=== PATIENT | male | born 1985 | race Caucasian/White ===

== ENCOUNTER 2017-02-25 15:47 | Emergency (ER) | payer BC ==
[~2017-02-25] VITALS: Ht 175.3 cm; Wt 90.7 kg
--- NOTE | 2017-02-25 15:50 | NUR ---
PT TAKEN TO CT VIA W/C ACCOMPANIED BY CLASS C TRUCK DRIVER
--- NOTE | 2017-02-25 15:50 | NUR ---
Valerie farmer in [facility] - 02/25/17 at 1614 by [email or web address] PT TAKEN TO CT VIA W/C ACCOMPANIED BY ARTIFICIAL FLOWERS STARCHER
--- NOTE | 2017-02-25 16:06 | NUR ---
Patient ambulated to bed 4 with family. RN evaluating patient at bedside.
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
[2017-02-25 16:13] VITALS: BP 140/79
--- NOTE | 2017-02-25 16:22 | NUR ---
LISA ARENAS AT BEDSIDE.
[2017-02-25 16:51] LABS: HEMOGLOBIN 16.7 g/dL (12.0-18.0); MONOCYTES # (AUTO) 0.6 K/uL (0.8-1.0); RED CELL DISTRIBUTION WIDTH 12.2 % (11.6-13.7); WHITE BLOOD COUNT (AUTO) 7.8 K/uL (4.8-10.8)
--- NOTE | 2017-02-25 16:51 | NUR ---
PT TAKEN TO XRAY VIA W/C ACCOMPANIED BY [employer].
--- NOTE | 2017-02-25 16:51 | NUR ---
Patient taken to XRAY via wheelchair by tech.
[2017-02-25 16:54] LABS: APPEARANCE,URINE CLEAR (CLEAR); BILIRUBIN,URINE NEGATIVE (NEGATIVE); BLOOD, URINE 2+ (NEGATIVE); COLOR,URINE YELLOW (YELLOW); LEUKOCYTE ESTERASE ,URINE NEGATIVE (NEGATIVE); NITRITE, URINE NEGATIVE (NEGATIVE); PH,URINE 6.5 (5.0-9.0); PROTEIN,URINE NEGATIVE (NEGATIVE); UGLUCOSE NEGATIVE (NEGATIVE); UROBILINOGEN,URINE 0.2 EU/dL (0.2 - 1)
[2017-02-25 16:58] LABS: BACTERIA,URINE RARE /HPF (None Seen); SQUAMOUS EPITHELIAL CELL,UR None Seen /LPF (0-3 (FEW)); WBC,URINE 0-3 /HPF (0-5)
[2017-02-25 17:03] LABS: ANION GAP 11.8 (8-16); CALCIUM 8.5 mg/dL (8.5-10.1); CARBON DIOXIDE 29.3 mmol/L (21-32); CREATININE 1.1 mg/dL (0.7-1.3); POTASSIUM 4.1 mmol/L (3.5-5.1)
[2017-02-25 17:05] LABS: BASOPHILS # (AUTO) 0.2 K/uL (0.00-0.22); BASOPHILS % (AUTO) 2.8 % (0.0-2.0); EOSINOPHILS # (AUTO) 0.1 K/uL (0-0.4); EOSINOPHILS % (AUTO) 1.2 % (0.0-4.0); HEMATOCRIT 50.1 % (36-52); LYMPHOCYTES # (AUTO) 1.6 K/uL (2.0-11.5); LYMPHOCYTES % (AUTO) 20.2 % (20.5-51.1); MEAN CORPUSCULAR HEMOGLOBIN 28 pg (27-31); MEAN CORPUSCULAR HGB CONC 33 g/dL (33-37); MEAN CORPUSCULAR VOLUME 83 fL (80-94); MONOCYTES % (AUTO) 7.7 % (1.7-9.3); NEUTROPHILS # (AUTO) 5.3 K/uL (1.8-7.7); NEUTROPHILS % (AUTO) 68.1 % (42.2-75.2); RED BLOOD CELL COUNT(AUTO) 6.05 MIL/uL (4.20-6.10)
[2017-02-25 17:09] LABS: PLATELET COUNT (AUTO) 223 K/uL (140-450); TOTAL BILIRUBIN 0.7 mg/dL (0.0-1.0); TOTAL PROTEIN, SERUM 7.6 g/dL (6.4-8.2)
[2017-02-25] MEDS ORDERED: KETOROLAC 30 MG/ML VIAL IVP ONE (17:10)
--- NOTE | 2017-02-25 17:24 | NUR ---
IV removed, catheter intact and site benign. Applied folded 4x4 gauze and tape to stop bleeding. PT TOLERATED PROCEDURE WELL.
[2017-02-25 17:35] VITALS: BP 134/73
--- NOTE | 2017-02-25 17:35 | NUR ---
Patient discharged with v/s stable. Written and verbal after care instructions given and explained. Patient alert, oriented and verbalized understanding of instructions. Ambulatory with steady gait. All questions addressed prior to discharge. ID band removed. Patient advised to follow up with PMD. Rx of MOTRIN 800MG TAB given. Patient educated on indication of medication including possible reaction and side effects. Opportunity to ask questions provided and answered.
== END 2017-02-25 17:35 | disposition home or self-care (01) ==
LOC: MED 15:47
DX: S40.012A Contusion of left shoulder, initial encounter (principal); S80.211A Abrasion, right knee, initial encounter; V23.9XXA Unspecified motorcycle rider injured in collision with car, pick-up truck or van in traffic accident, initial encounter; Y93.89 Activity, other specified; Y92.89 Other specified places as the place of occurrence of the external cause; Y99.8 Other external cause status
CPT/HCPCS: 36415; 72040; 73030; 80053; 81001; 82150; 83690; 85025; 96374; 99285; J1885